=== PATIENT | female | born 1950 | race Caucasian/White ===

== ENCOUNTER 2016-11-09 21:25 | Emergency (ER) | payer BC ==
[~2016-11-09] VITALS: Ht 170.2 cm; Wt 76.2 kg
[2016-11-09] MEDS ORDERED: Ketorolac 30mg Inj IV ONE (21:45)
--- NOTE | 2016-11-09 22:26 | Emergency Room Report ---
History of Present Illness General Chief Complaint: Animal Bite Source: Patient Present Illness HPI 66 YO F attacked by her dogs after breaking up fight between them. States she was bitten/scratched to bilateral hands/wrists. Tetanus is up to date. States right pinky finger "cant be straigtened." Currently on Keflex for post-op procedure. Allergies: Coded Allergies: No Known Allergies (Unverified , 11/09/16) Patient History Past Medical History: see triage record, old chart reviewed Past Surgical History: none Pertinent Family History: none Social History: Denies: alcohol use, drug use, smoking Now: No Immunizations: UTD Reviewed Nursing Documentation: PMH: Agreed, PSxH: Agreed Nursing Documentation-PMH Hx Hypertension: Yes Review of Systems All Other Systems: negative except mentioned in HPI Physical Exam Vital Signs Date Time Temp Pulse Resp B/P Pulse Ox O2 Delivery O2 Flow Rate FiO2 11/09/16 21:17 98.1 100 20 115/82 97 Room Air Sp02 EP Interpretation: reviewed, normal General Appearance: normal inspection, well appearing, no apparent distress, alert Head: atraumatic ENT: normal ENT inspection, hearing grossly normal, normal voice Neck: normal inspection, full range of motion, supple, no bony tend Respiratory: normal inspection, lungs clear, normal breath sounds, no respiratory distress, no retraction, no wheezing Gastrointestinal: normal inspection, normal bowel sounds, non tender, soft, no guarding, no hernia Genitourinary: no CVA tenderness Musculoskeletal: normal inspection, back normal, normal range of motion, Snow' s Sign negative, other - Right wrist: volar aspect 1cm laceration. Dorsal aspect of wrist, distal forearm there are 2 2cm lacerations. Wounds explored. No FB. Right pinky finger, held in flexion at PIP, unable to extend. Neurologic: normal inspection, alert, responsive, speech normal Psychiatric: normal inspection, judgement/insight normal, mood/affect normal Skin: normal inspection, normal color, no rash Medical Decision Making Diagnostic Impression: Primary Impression: Bite by animal Additional Impression: Injury of right little finger Qualified Codes: S69.91XA - Unspecified injury of right wrist, hand and finger (s), initial encounter ER Course 66 YO F with multiple bites/scratches to right and left hand/wrist. VSS. Afebrile All wounds explored to base and thoroughly cleaned with betadine and high pressure irrigation Wounds NOT closed d/t animal bite/scratch Advised STOP keflex Start Augmentin - PPx. First dose given in ED and Rx Rx ibuprofen for pain Return in 3 days for wound check No acute fx or dislocation to right hand Keep sloan clean/dry-steri strips applied DC home Other X-Ray Diagnostic Results Other X-Ray Diagnostic Results : X-Ray Ordered: Right hand Findings: no fractures, no dislocation, no soft tissue swelling Number of Views: 3 Last Vital Signs Date Time Temp Pulse Resp B/P Pulse Ox O2 Delivery O2 Flow Rate FiO2 11/09/16 21:17 98.1 100 20 115/82 97 Room Air Status: improved Disposition: HOME, SELF-CARE Scripts Amoxicillin/Potassium Clav 875-125* (AUGMENTIN 875-125 TABLET*) 1 Each Tablet 1 TAB ORAL TWICE A DAY for 10 Days, #20 TAB Prov: FANNIE PERRY M.D. 11/09/16 FANNIE PERRY M.D. Nov 09, 2016 22:26
[2016-11-09] MEDS ORDERED: Augmentin 875mg Tab ORAL ONE (22:30)
[2016-11-09 23:11] VITALS: BP 119/84
[2016-11-09] MEDS ORDERED: AUGMENTIN 875-1 EAC1 ORAL (23:11)
[2016-11-09 23:58] VITALS: BP 119/84
--- NOTE | 2016-11-10 09:28 | Diagnostic Imaging Report ---
Indications: dog bite right hand, injury with laceration, pain Technique: 3 views right hand. Findings: Comparison: None The soft tissues over the dorsum of the wrist and distal forearm are swollen and irregular with skin disruption and subcutaneous gas lucency. No fracture, dislocation, joint space widening , foreign body, or other acute changes are identified. IMPRESSION: Soft tissue lacerations to the dorsum of the right wrist and distal forearm. No fracture or foreign body.
== END 2016-11-09 23:58 | disposition home or self-care (01) ==
LOC: EDBD 21:25 → EMR 21:40
DX: S61.511A Laceration without foreign body of right wrist, initial encounter (principal); S51.811A Laceration without foreign body of right forearm, initial encounter; S69.81XA Other specified injuries of right wrist, hand and finger(s), initial encounter; W54.0XXA Bitten by dog, initial encounter; Y92.9 Unspecified place or not applicable; I10 Essential (primary) hypertension
CPT/HCPCS: 73130; 96374; 99284; J1885